=== PATIENT | male | born 1965 | race Caucasian/White ===

== ENCOUNTER 2022-12-14 14:02 | Emergency (ER) | payer BC, SELFPAY ==
[2022-12-14 14:02] VITALS: BP 135/92; PULSE 110; RESP 18; TEMP 36.8; O2SAT 95
[2022-12-14 14:10] VITALS: BP 135/92; PULSE 110; RESP 18; TEMP 36.8; O2SAT 95
--- NOTE | 2022-12-14 14:13 | ED.GENADULT ---
HPI - General Adult General Chief complaint: Wound/Laceration Stated complaint: abscess to abdomen Time Seen by Provider: 12/14/22 14:13 Source: patient Mode of arrival: ambulatory Limitations: no limitations History of Present Illness HPI narrative: 49-year-old white male was in bed about 4 5 days ago felt sudden sting on his waistline and his abdomen. Did not see a spider but that area turned into red bump a gradually swelled and was very tender and then it drained this morning some blood and pus. He thinks it was a spider bite but did not actually see a spider. Otherwise he denies any other problems denies any cough fever sore throat runny nose difficulty breathing other lumps or bumps or rashes or itching dizziness or lightheadedness problems voiding or stooling or other pain. He says it feels much better since the drain this morning hurts because it is on his waistline. He had to change the dressing a couple times today. Past medical history: Denies any past medical history with exception of a bad left shoulder. Allergies no known drug allergies Related Data Allergies Allergy/AdvReac Type Severity Reaction Status Date / Time No Known Allergies Allergy Verified 12/14/22 14:09 Review of Systems Review of Systems: All systems reviewed & are unremarkable except as noted in HPI and below Exam Narrative: Pleasant white male appears in no apparent distress eyes conjunctiva pink sclera nonicteric oropharynx is clear is supple lungs are clear heart is regular rate rhythm without murmurs gallops or rubs abdomen is soft and nontender no hepatosplenomegaly does have at his belt line suprapubic a 2 cm x 1.5 cm ulceration draining small amount of drops of blood tender warm erythematous surrounding. CVA tenderness no right rebound tenderness extremities no cyanosis clubbing or edema neurologically he is alert and oriented x4 motor and sensory grossly intact. Medical Decision Making MDM Narrative Medical decision making narrative: Patient was placed in room 1 history and physical was performed. Independent Historian: ? Patient Differential Dx includes but not limited to: this does look like a brown recluse spider bite Medications were Reviewed:? reviewed ? Medications treatments given: wound was redressed Independently Interpreted by me:? External Source Review:?? Medical conditions/social Situation Impacting Patients Care:?? Shared decision Making:? evaluation was discussed with the patient all questions were asked and answered patient agreed on the plan. ? Clinical impression:? ? Likely brown recluse spider bite abscess formation that is draining ? Patient disposition: ? discharge home ? Condition at discharge: stable Discharge Plan Discharge Clinical Impression: Abdominal wall abscess Brown recluse spider bite Qualifiers: Encounter type: initial encounter Injury intent: accidental or unintentional Qualified Code(s): T63.331A - Toxic effect of venom of giovany parry spider, accidental (unintentional), initial encounter Patient Disposition: Home, Self-Care Condition: Stable Instructions: Antibiotic Form, Brown Recluse Spider Bite (ED) Additional Instructions: Tylenol and or ibuprofen for pain up as needed. Warm soaks or low heating pad for 20 minutes 3-4 times per day for the next 7 days. Change dressing once or twice a day and as needed. Follow-up with primary care provider. Return if you get worse or develops any new symptoms. Augmentin 875 twice a day for 7 days. Prescriptions: New amoxicillin-pot clavulanate 875-125 mg tablet 1 tablet PO Q12H 7 Days Qty: 14 0RF Follow-up/Referrals: UNKNOWN,DOCTOR [Primary Care Provider] - Time of Disposition: 14:27
[2022-12-14 14:30] VITALS: BP 135/92; PULSE 110; RESP 18; TEMP 36.8; O2SAT 95
== END 2022-12-14 14:30 | disposition home or self-care (01) ==
PROVIDERS: Emergency Provider Emergency Medicine
DX: T63.331A Toxic effect of venom of brown recluse spider, accidental (unintentional), initial encounter (principal); L02.211 Cutaneous abscess of abdominal wall
CPT/HCPCS: 99283

== ENCOUNTER 2024-12-09 22:19 | Emergency (ER) | payer BC, SELFPAY ==
[2024-12-09 22:23] VITALS: BP 133/96; PULSE 105; RESP 18; TEMP 36.8; O2SAT 96
--- NOTE | 2024-12-09 22:26 | ED_ITS ---
HPI - Wound/Laceration General Chief Complaint: Wound/Laceration Stated Complaint: cut on arm Time Seen by Provider: 12/09/24 22:26 Source: patient Mode of arrival: ambulatory Limitations: no limitations History of Present Illness HPI narrative: 59-year-old male presents to the ED with -- Y shape with a superficial laceration over the left forearm. Laceration caused by a nail. No other injuries noted. Tetanus is not up-to-date. Onset (ago): hour(s) ( One hour before coming to the ED) Extremity Location: Left: forearm Body four view annotation: 2 1. Y shaped laceration over the left forearm. 2. Place: home Patient tetanus UTD: No Context: accidental Associated symptoms: none Related Data Allergies Allergy/AdvReac Type Severity Reaction Status Date / Time No Known Allergies Allergy Verified 12/09/24 22:28 Review of Systems 2 Review of Systems: All systems reviewed & are unremarkable except as noted in HPI and below Exam 2 Narrative: Vital stable Const: Orientation/consciousness: patient oriented x3 Limitations: no limitations HENMT: Head: normal to inspection Ears: external ears normal F tashi/Nose/Sinus: Normal external nose present Face and sinus: normal facial exam Mouth: Yes Normal oral and palatal mucosa present Throat: posterior oropharynx normal Eyes: Conjunctivae: conjunctivae normal Pupils: Equal, round and reactive pupils present EOM: EOMs intact bilaterally Direct Ophthalmoscopy: no photophobia Neck: Neck: normal visual inspection, no lymphadenopathy and no meningeal signs Chest: Chest palpation & inspection: normal inspection of the chest Resp: Effort & Inspection: normal respiratory effort Auscultation: clear to auscultation bilaterally Cardio: Rate: regular rate Rhythm: regular rhythm GI: GI Palp: Yes Soft to palpation Auscultation: normal bowel sounds O ther: no tenderness/rigidity /rebound. Back/Spine/Pelvis: Back: no CVA tenderness Skin: General skin exam: normal color Rashes: no rashes Other: Y shaped laceration over the left forearm measuring 5 cm. full-thickness skin laceration Neuro: General: patient oriented x3, moves all extremities, no meningeal signs, no focal motor deficits and CN's II-XI intact bilaterally Cranial nerves: Yes Nystagmus not present Speech: normal speech Gait exam (Neuro): Normal gait present Extrem: General: normal to inspection and no clubbing, cyanosis or edema O ther: left forearm laceration Psych: Mental Status: mental status grossly normal Affect: normal affect Course Course Emergency Course: left forearm Y shaped laceration status post suturing Vital Signs Vital signs: Vital Signs Temperature 36.8 C 12/09/24 22:23 Pulse Rate 105 H 12/09/24 22:23 Respiratory Rate 18 12/09/24 22:23 Blood Pressure 133/96 H 12/09/24 22:23 Pulse Oximetry 96 12/09/24 22:23 Oxygen Delivery Room Air 12/09/24 22:23 Temperature 36.8 C 12/09/24 22:23 Pulse Rate 105 H 12/09/24 22:23 Respiratory Rate 18 12/09/24 22:23 Blood Pressure 133/96 H 12/09/24 22:23 Pulse Oximetry 96 12/09/24 22:23 Oxygen Delivery Room Air 12/09/24 22:23 Procedures Laceration Laceration 1: Date: 12/09/24 Time: 22:51 Site: upper extremity Side (If applicable): left Size (cm): 5 Description: irregular Depth: [id number] Local Anesthetic: lidocaine 1% Amount of anesthesia used (mL): 5 ====== Skin Level ====== Skin layer closed with: nylon Size (cm): 4-0 Number of sutures: 10 Technique: running ====== Subcutaneous Layer ====== ====== Muscle Layer ====== ====== Tendon Layer ====== MDM - Wound/Laceration MDM Narrative Medical decision making narrative: forearm laceration Discharge Plan Discharge Clinical Impression: Laceration Patient Disposition: Home Condition: Stable Instructions: Antibiotic Form, Laceration (ED) Patient Language: Bruneian Prescriptions: New cephalexin 500 mg capsule 500 mg PO Q6H Qty: 30 0RF No Action amoxicillin-pot clavulanate 875-125 mg tablet 1 tablet PO Q12H 7 Days Qty: 14 0RF Follow-up/Referrals: UNKNOWN,DOCTOR [Non-Staff] Time of Disposition: 22:53
[2024-12-09] MEDS: LIDOCAINE 1% LOCAL INJ 10 ML VIAL 5 ML INFILTRATE (22:32)
[2024-12-09] MEDS: TETANUS,DIPHTHERIA,AC PERTUSSIS ADULT 0.5 ML (ADACEL) IM (22:44)
[2024-12-09] MEDS: NEOMYCIN/POLYMYXIN/BACITRACIN OINTMENT PACKET 1 PACKET TOPICAL (22:48)
== END 2024-12-09 23:06 | disposition home or self-care (01) ==
LOC: CHSED 22:56
PROVIDERS: Emergency Provider Internal Medicine Critical Care Medicine; Referring Provider Internal Medicine
DX: S51.812A Laceration without foreign body of left forearm, initial encounter (principal); Z23 Encounter for immunization; W45.0XXA Nail entering through skin, initial encounter
CPT/HCPCS: 12002; 90471; 90715; 99283; J2003